=== PATIENT | male | born 1955 | race Two or more races ===

== ENCOUNTER 2016-08-22 23:09 | Emergency (ER) | payer SELFPAY ==
[~2016-08-22] VITALS: Ht 175.3 cm; Wt 86.0 kg
[2016-08-22 23:18] VITALS: BP 142/62
== END 2016-08-23 02:35 | disposition left against medical advice (07) ==
LOC: ER 23:09
DX: M54.2 Cervicalgia (principal); M54.9 Dorsalgia, unspecified; E11.9 Type 2 diabetes mellitus without complications; E78.00 Pure hypercholesterolemia, unspecified; F17.200 Nicotine dependence, unspecified, uncomplicated